=== PATIENT | male | born 1980 ===

== ENCOUNTER 2024-06-16 07:48 | Emergency (ER) | payer SELFPAY ==
[~2024-06-16] VITALS: Ht 165.1 cm; Wt 81.6 kg
[~2024-06-16 07:48] MED LIST: SEPTDS PO
[2024-06-16] MEDS ORDERED: Lidocaine Hydrochloride 2% 10 ML AMP SC ONE (08:10)
[2024-06-16] MEDS ORDERED: VIBRAMYCIN100 MG PO (08:55)
== END 2024-06-16 09:02 | disposition home or self-care (01) ==
LOC: ED 07:48
DX: M95.11 Cauliflower ear, right ear (principal); H60.01 Abscess of right external ear